=== PATIENT | female | born 1990 | race Asian ===

== ENCOUNTER 2020-02-24 09:04 | Outpatient (CLI) | payer MEDICAID | END 2020-02-24 23:59 | disposition home or self-care (01) | LOC: RT 09:04 | PROVIDERS: ATTEND Nurse Practitioner Family | DX: J45.909 Unspecified asthma, uncomplicated (principal) | CPT/HCPCS: 94010 ==

== ENCOUNTER 2020-10-15 08:11 | Emergency (ER) | payer MEDICAID ==
[~2020-10-15] VITALS: Ht 160 cm; Wt 69.5 kg
[2020-10-15] MEDS ORDERED: LORazepam 1 MG tablet PO ONE (09:00)
[2020-10-15 09:12] LABS: URINE HCG NEGATIVE (NEG)
[2020-10-15 09:13] LABS: CLARITY,URINE SLIGHTLY CLOUDY (Clear); COLOR,URINE YELLOW (Yellow); GLUCOSE, URINE NEGATIVE (Neg); KETONES,URINE 15 mg/dl (Neg); LEUKOCYTE ESTERASE ,URINE TRACE (Neg); NITRITES, URINE NEGATIVE (Neg); OCCULT BLOOD,URINE NEGATIVE (Neg); PROTEIN,URINE NEGATIVE (Neg); UROBILINOGEN,URINE 0.2 E.U/dL (0.2-1.0)
--- NOTE | 2020-10-15 09:14 | NUR ---
PT IS HAVING WEIRD THOUGHTS. AFRAID OF WHAT CAN HAPPEN. HEARING VOICES TO HURT SELF. EX: NOBODY WANTS YOUR HEAR. JUST TIE A NOOZE AROUND YOUR NECK.
[2020-10-15 09:16] LABS: BASOPHILS % (AUTO) 0.4 % (0-1); EOSINOPHILS # (AUTO) 0.1 X10'3 (0-0.9); EOSINOPHILS % (AUTO) 0.6 % (0-6); HEMATOCRIT 47.5 % (35.0-45.0); HEMOGLOBIN 16.1 g/dl (12.0-16.0); LYMPHOCYTES # (AUTO) 1.6 X10'3 (1.1-4.8); LYMPHOCYTES % (AUTO) 15.6 % (21-51); MEAN CORPUSCULAR HGB CONC 33.9 g/dL (33.0-36.5); MEAN CORPUSCULAR VOLUME 88.6 FL (78-98); MEAN PLATELET VOLUME 8.9 FL (7.4-10.4); MONOCYTES # (AUTO) 0.5 X10'3 (0-0.9); MONOCYTES % (AUTO) 4.6 % (2-12); NEUTROPHILS % (AUTO) 78.8 % (42-75); PLATELET COUNT 344 X10'3 (140-440); RED BLOOD COUNT 5.36 X10'6 (4.20-5.60); RED CELL DISTRIBUTION WIDTH 12.8 % (11.5-14.5); WHITE BLOOD COUNT 10.1 X10'3 (4.5-11.0)
[2020-10-15 09:17] LABS: URINE AMPHETAMINE SCREEN NEGATIVE (Neg); URINE BARBITUATE SCREEN NEGATIVE (Neg); URINE BENZODIAZEPINES SCREEN POSITIVE (Neg); URINE CANNABINOID SCREEN NEGATIVE (Neg); URINE COCAINE SCREEN NEGATIVE (Neg); URINE METHADONE SCREEN NEGATIVE (Neg); URINE OPIATE SCREEN NEGATIVE (Neg); URINE PHENCYCLIDINE SCREEN NEGATIVE (Neg)
[2020-10-15 09:18] LABS: UA COLLECTION TYPE CLN CATCH MIDSTREAM
[2020-10-15 09:20] LABS: MUCUS STRANDS FEW /LPF (Neg); SQUAMOUS EPITHELIAL CELL,UR MANY /LPF (FEW)
[2020-10-15 09:22] LABS: BACTERIA,URINE 1+ /HPF (Neg); RBC,URINE 0-2 /HPF (0-2); WBC,URINE 0-4 /HPF (0-4)
[2020-10-15 09:24] LABS: ALBUMIN 4.2 G/DL (3.4-5.0); ALKALINE PHOSPHATASE 94 IU/L (46-116); ANION GAP 7 (8-16); BILIRUBIN,TOTAL 0.4 MG/DL (0.1-1.0); BLOOD UREA NITROGEN 6 MG/DL (7-18); BUN/CREATININE RATIO 8.8 (6.6-38.0); CALCIUM 8.8 MG/DL (8.5-10.1); CHLORIDE 101 MMOL/L (99-107); CREATININE 0.68 MG/DL (0.40-0.90); GLUCOSE 98 MG/DL (70-104); POTASSIUM 3.4 MMOL/L (3.5-5.1); SODIUM 141 MMOL/L (135-145); TOTAL PROTEIN 8.4 G/DL (6.4-8.2); eGFR > 90 ML/MIN
[2020-10-15 09:27] LABS: ALANINE AMINOTRANSFERASE 21 U/L (12-78); ASPARTATE AMINO TRANSFERASE 15 U/L (10-37)
[2020-10-15 09:33] LABS: ETHANOL < 0.010 GM/DL (0.0-0.010)
--- NOTE | 2020-10-15 14:48 | NUR ---
Patient being evaluated by quita Millan.
--- NOTE | 2020-10-15 17:31 | NUR ---
Asking how long her hold is and if there's anything to do around here, when meals are, and if it's true she cant shower. Layed back down and rested
[2020-10-15] MEDS ORDERED: OLANZapine 2.5MG tablet PO ONE (19:05)
--- NOTE | 2020-10-15 19:06 | NUR ---
One to one with the patient for the evening nursing assessment. She reports increased anxiety and distress regarding not being able to sleep. Stated that at times she becomes so anxious that she vomits. She stated that she is unable to shut off her mind at night. She stated, "I feel like my brain hurts" She is very concerned that her symptoms will continue to increase and become as bad as they were last year. She stated that she feels she has PTSD from that break. She stated that she feels very hopeless and has a "never ending cycle of worries" She stated that stressors included financial worries and being unemployed. She stated that she does not feel she could handle a job at this time. At times she becomes so hopeless that she feels "I should just off myself...I don't want to be a burden...what's the point of being alive" Discussed medications with her and spoke with Heber CARRERA and medication orders given. Medication provided.
--- NOTE | 2020-10-15 20:22 | NUR ---
The patient has been accepted at [facility].
--- NOTE | 2020-10-15 20:45 | NUR ---
The patient is resting on her bed.
--- NOTE | 2020-10-15 21:20 | NUR ---
The patient is resting on her bed pending transfer to [facility]
[2020-10-15] MEDS ORDERED: BUDE10.27 INH (21:31)
[2020-10-15 21:33] VITALS: BP 110/76
[2020-10-15] MEDS ORDERED: ALPR-624 PO (21:33)
[2020-10-15] MEDS ORDERED: ALBU8HFA PO (21:34)
== END 2020-10-15 21:36 ==
LOC: ER 08:12
DX: F29 Unspecified psychosis not due to a substance or known physiological condition (principal); Z88.8 Allergy status to other drugs, medicaments and biological substances
CPT/HCPCS: 36415; 80053; 80305; 80320; 81001; 81025; 84443; 85025; 99285